=== PATIENT | male | born 1995 | race American Indian/Alaskan Native ===

== ENCOUNTER 2016-09-10 16:21 | Emergency (ER) | payer SELFPAY ==
[2016-09-10 16:44] VITALS: BP 136/97
--- NOTE | 2016-09-10 18:48 | Emergency Department Report ---
Minor Respiratory - HPI Chief Complaint: Upper Respiratory Infection Stated Complaint: FLU SYMPTOMS Time Seen by Provider: 09/10/16 18:30 Duration: 2 weeks Pain Location: Nose Severity: mild Minor Respiratory: Yes Rhinorrhea, Yes Able to Tolerate Fluids, Yes Cough, No Sore Throat, No Ear Pain, No Sick Contacts, No Hemoptysis, No Chest Pain, No Shortness of Breath, No Fever Other History: Pt reports congestion and R maxillary pain x 2 weeks. No fever. Also reports STD exposure. ED Review of Systems ROS: Stated complaint: FLU SYMPTOMS Other details as noted in HPI Comment: All other systems reviewed and negative Constitutional: denies: chills, fever Eyes: denies: eye pain, eye discharge, vision change ENT: congestion. denies: ear pain, throat pain Respiratory: cough. denies: shortness of breath, wheezing Cardiovascular: denies: chest pain, palpitations Endocrine: no symptoms reported Gastrointestinal: denies: abdominal pain, nausea, diarrhea Genitourinary: denies: urgency, dysuria Musculoskeletal: denies: back pain, joint swelling, arthralgia Skin: denies: rash, lesions Neurological: denies: headache, weakness, paresthesias Psychiatric: denies: anxiety, depression Hematological/Lymphatic: denies: easy bleeding, easy bruising ED Past Medical Hx - Past Medical History Previous Medical History?: No - Surgical History Past Surgical History?: No - Social History Smoking Status: Current Some Day Smoker Substance Use Type: Alcohol, Marijuana - Medications Home Medications: Home Medications Medication Instructions Recorded Confirmed Last Taken Type Amoxicillin/K Clav Tab [Augmentin 1 tab PO Q12HR #20 tab 09/10/16 Unknown Rx 875 mg] Minor Respiratory Exam - Exam General: Vital signs noted. No distress. Alert and acting appropriately. HEENT: Yes Pharyngeal Erythema, Yes Moist Mucous Membranes, Yes Rhinorrhea, Yes Maxillary Tenderness, No Pharyngeal Exudates, No Conjuctival Injection, No Frontal Tenderness Ear: Neither TM Bulge, Neither TM Erythema, Neither EAC Pain, Neither EAC Discharge Neck: Yes Supple, No Adenopathy Lungs: Yes Good Air Exchange, No Wheezes, No Ronchi, No Stridor, No Cough, No Labored Respirations, No Retractions, No Use of Accessory Muscles, No Other Abnormal Lung Sounds Heart: Yes Regular, No Murmur Abdomen: Yes Normal Bowel Sounds, No Tenderness, No Peritoneal Signs Skin: No Rash, No Edema Neurologic: Alert and oriented, no deficits. Musculoskeletal: Unremarkable. ED Course Vital Signs 09/10/16 16:41 Temperature 98.4 F Pulse Rate 94 H Respiratory 20 Rate Blood Pressure 136/97 O2 Sat by Pulse 100 Oximetry - Reevaluation(s) Reevaluation #1: 09/10/16 18:47 NAD, stable for d/c. ED Medical Decision Making - Medical Decision Making Will send urine for STD testing and treat. Will give abx for ongoing sinusitis. Follow up given. - Differential Diagnosis sinusitis, STI Critical care attestation.: If time is entered above; I have spent that time in minutes in the direct care of this critically ill patient, excluding procedure time. ED Disposition Clinical Impression: Right maxillary sinusitis, Exposure to STD Disposition: DISCHARGED TO HOME OR SELFCARE Is pt being admited?: No Condition: Good Instructions: Sinusitis (ED) Prescriptions: Amoxicillin/K Clav Tab [Augmentin 875 mg] 1 tab PO Q12HR #20 tab Time of Disposition: 18:50
[2016-09-10] MEDS: ROCEPHIN IM ONE (19:00)
[2016-09-10] MEDS: ZITHROMAX PO ONE (19:00)
[2016-09-10] MEDS: XYLOCAINE 1% MPF 5 mL INFILTRATI ONE (19:00)
== END 2016-09-10 18:50 | disposition home or self-care (01) ==
LOC: ED 16:21
DX: J32.0 Chronic maxillary sinusitis (principal); F17.200 Nicotine dependence, unspecified, uncomplicated; F12.10 Cannabis abuse, uncomplicated; Z20.2 Contact with and (suspected) exposure to infections with a predominantly sexual mode of transmission
CPT/HCPCS: 96372; 99282; J0696

== ENCOUNTER 2016-12-01 10:59 | Emergency (ER) | payer SELFPAY ==
[2016-12-01] MEDS ORDERED: BENADRYL IV ONE (17:11)
[2016-12-01] MEDS ORDERED: REGLAN IV ONE (17:11)
[2016-12-01] MEDS ORDERED: MOTRIN PO ONE (17:23)
[2016-12-01 17:43] VITALS: BP 134/74
--- NOTE | 2016-12-03 07:29 | Emergency Department Report ---
Entered by ADOLPH NUNEZ, acting as scribe for ELIA TATE NP. ED Headache HPI - General Chief Complaint: Headache Stated Complaint: MIGRAINES Time Seen by Provider: 12/01/16 16:14 Source: patient Exam Limitations: no limitations - History of Present Illness Initial Comments: 21 y/o male, with Hx of chronic migraines, non-toxic, well nourished, no acute signs of distress presents c/o a sharp JAUREGUI that started 1.5 weeks ago and has gradually worsened. Pt denies trauma to the head or n/v, abd pain, SOB, chest pain, fever, thunderclap headache, blurry vision or vision disturbances. Alleviating factors include ibuprofin and darkness. Pain is aggravated by bright lights and stress. Pt notes that his co-worker Jed will be driving him home. Patient denies having a primary care doctor. Denies any allergies. Timing/Duration: other (1.5 weeks) Quality: sharp Head Injury Location: frontal Recent Head Trauma: no recent headache/trauma, chronic headaches Modifying Factors: improves with: exposure to light (worsens with), medication ( ibuprofin mild relief) Associated Symptoms: denies symptoms. denies: fever/chills, loss of consciousness, nausea/vomiting, numbness in legs/feet, vision changes Allergies/Adverse Reactions: Allergies No Known Allergies Allergy (Verified 05/13/16 20:40) Home Medications: Ambulatory Orders Amoxicillin/K Clav Tab [Augmentin 875 mg] 1 tab PO Q12HR #20 tab 09/10/16 metroNIDAZOLE [Flagyl TAB] 500 mg PO ONCE #4 tab 09/19/16 Ibuprofen [Motrin 800 MG tab] 800 mg PO Q8HR PRN 5 Days 12/01/16 ED Review of Systems Constitutional: denies: chills, fever Eyes: denies: vision change, other (blurry vision) Respiratory: denies: shortness of breath Cardiovascular: denies: chest pain Gastrointestinal: denies: abdominal pain, nausea, vomiting, diarrhea Neurological: headache (non thunderclap). denies: numbness ED Past Medical Hx - Past Medical History Previous Medical History?: Yes Hx Headaches / Migraines: Yes - Surgical History Past Surgical History?: No - Social History Smoking Status: Current Every Day Smoker Substance Use Type: Alcohol, Marijuana - Medications Home Medications: Home Medications Medication Instructions Recorded Confirmed Last Taken Type Amoxicillin/K Clav Tab [Augmentin 1 tab PO Q12HR #20 tab 09/10/16 Unknown Rx 875 mg] metroNIDAZOLE [Flagyl TAB] 500 mg PO ONCE #4 tab 09/19/16 Unknown Rx Ibuprofen [Motrin 800 MG tab] 800 mg PO Q8HR PRN 5 Days 12/01/16 Unknown Rx ED Physical Exam - General Limitations: No Limitations General appearance: alert, in no apparent distress - Head Head exam: Present: atraumatic, normocephalic - Eye Eye exam: Present: normal appearance, PERRL, EOMI - ENT ENT exam: Present: normal exam, mucous membranes moist - Neck Neck exam: Present: normal inspection, full ROM. Absent: tenderness, meningismus, lymphadenopathy - Respiratory Respiratory exam: Present: normal lung sounds bilaterally. Absent: respiratory distress, wheezes, rales, rhonchi, stridor, chest wall tenderness, accessory muscle use, decreased breath sounds, prolonged expiratory - Cardiovascular Cardiovascular Exam: Present: regular rate, normal rhythm, normal heart sounds - GI/Abdominal GI/Abdominal exam: Present: soft, normal bowel sounds. Absent: tenderness, guarding, rebound - Extremities Exam Extremities exam: Present: normal inspection, full ROM, normal capillary refill. Absent: tenderness, pedal edema - Back Exam Back exam: Present: normal inspection, full ROM. Absent: tenderness, CVA tenderness (R), CVA tenderness (L), muscle spasm, paraspinal tenderness, vertebral tenderness, rash noted - Neurological Exam Neurological exam: Present: alert, oriented X3, CN II-XII intact, normal gait - Expanded Neurological Exam Expanded Patient oriented to: Present: person, place, time Speech: Present: fluid speech (normal speech) Cranial nerves: EOM's Intact: Normal, Gag Reflex: Normal, Tongue Deviation: Normal, Nystagmus: Normal, Facial Sensation: Normal, Facial Palsy with Forehead Movement: Normal, Facial Palsy without Forehead Movement: Normal Cerebellar function: Finger to Nose: Normal, Heel to Cruz: Normal, Romberg: Normal Upper motor neuron: Eriberto Neglect: Normal, Pronator Drift: Normal, Babinski Sign : Normal, Sensory Extinction: Normal Sensory exam: Upper Extremity Light Touch: Normal, Upper Extremity Pin Prick: Normal, Upper Extremity Temperature: Normal, UE 2 Point Discrimination: Normal, Lower Extremity Light Touch: Normal, Lower Extremity Pin Prick: Normal, Lower Extremity Temperature: Normal, LE 2 Point Discrimination: Normal Motor strength exam: RUE: 5, LUE: 5, RLE: 5, LLE: 5 Best Eye Response (Farzaneh): (4) open spontaneously Best Motor Response (Farzaneh): (6) obeys commands Best Verbal Response (Dudley): (5) oriented Farzaneh Total: 15 - Psychiatric Psychiatric exam: Present: normal affect, normal mood - Skin Skin exam: Present: warm, normal color ED Course Vital Signs 12/01/16 11:35 Temperature 98.4 F Pulse Rate 71 Respiratory 18 Rate Blood Pressure 142/87 O2 Sat by Pulse 98 Oximetry ED Medical Decision Making - Medical Decision Making Ed course: This is a 21-year-old male that presents with migraine headaches 1- after my physical exam, I ordered Benadryl 25 mg IV and Reglan 10 mg IV. Patient refused and stated would like to only receive ibuprofen due to time constraints. Patient stated had to leave for work due to missed work yesterday. Patient was instructed that I went to evaluate him further and make sure that the treatment subsides his symptoms, but patient refused and said he wants to go home. 2- Jed will be driving him home and is currently present. 3- patient received ibuprofen 800 mg by mouth an ED. I was unable to reevaluate pain due to patient wanted to leave. 4- at the time of discharge the patient does not seem toxic or ill in appearance. No signs of distress noted. Patient agrees to discharge treatment plan. No further questions noted by the patient. 5- patient was instructed to follow up with a primary care doctor for migraine headaches or if symptoms worsen report beds emergency room. ED Disposition Clinical Impression: Migraine headache Qualifiers: Migraine type: unspecified Status migrainosus presence: without status migrainosus Intractability: not intractable Qualified Code(s): G43.909 - Migraine, unspecified, not intractable, without status migrainosus Disposition: DISCHARGED TO HOME OR SELFCARE Is pt being admited?: No Does the pt Need Aspirin: No Condition: Stable Instructions: Migraine Headache (ED), Ibuprofen (By mouth) Additional Instructions: Follow-up with a primary care doctor for her migraine headaches or if symptoms worsen such as thunderclap headache, nausea vomiting, or vision, sudden onset of headache report back to emergency room. Take ibuprofen as prescribed as needed. Prescriptions: Ibuprofen [Motrin 800 MG tab] 800 mg PO Q8HR PRN 5 Days PRN Reason: Pain Referrals: ROSA ELENA HAQEU MD [Referring] - 3-5 Days [facility] [Outside] - 3-5 Days [facility] [Outside] - 3-5 Days PRIMARY CARE, [Primary Care Provider] - [facility] Forms: Work/School Release Form(ED) This documentation as recorded by the ENRIQUE coffey RYAN,accurately reflects the service I personally performed and the decisions made by ,ELIA TATE, REJI.
== END 2016-12-01 17:40 | disposition home or self-care (01) ==
LOC: ED 10:59
DX: G43.909 Migraine, unspecified, not intractable, without status migrainosus (principal); F17.200 Nicotine dependence, unspecified, uncomplicated; F12.10 Cannabis abuse, uncomplicated
CPT/HCPCS: 99282; J1200; J2765

== ENCOUNTER 2021-01-14 03:12 | Emergency (ER) | payer BC ==
--- NOTE | 2021-01-14 04:35 | Emergency Department Report ---
ED General Adult HPI - General Chief complaint: Dental/Oral Stated complaint: MOUTH PAIN Source: patient Mode of arrival: Ambulatory Limitations: No Limitations - History of Present Illness Initial comments: Patient is a 25-year-old -[place] male with a history of morbid obesity and migraine headaches who presents to the ED with complaint of acute onset persistent painful swollen maxillary and mandibular gingiva with premolar and molar toothaches for the last 2 weeks, worse in the last 3 days. Patient states that he has been taking [id number] medications with no relief. Patient denies dizziness, syncope, chest pain, shortness of breath, sore throat, headache, fever, chills, cough, neck pain, change in vision, dizziness or syncope. MD Complaint: Right maxillary and mandibular premolar and molar toothache with swollen gi -: Sudden, week(s) (2) Location: mouth Radiation: non-radiation Severity scale (0 -10): 7 Quality: aching, sharp Consistency: constant Improves with: none Worsens with: eating Associated Symptoms: denies other symptoms. denies: confusion, chest pain, cough, fever/chills, headaches, loss of appetite, malaise, nausea/vomiting, rash, seizure, shortness of breath, syncope, weakness Treatments Prior to Arrival: none - Related Data Previous Rx's Medication Instructions Recorded Last Taken Type Amoxicillin/K Clav Tab [Augmentin 1 tab PO Q12HR #20 tab 09/10/16 Unknown Rx 875 mg] metroNIDAZOLE [Flagyl TAB] 500 mg PO ONCE #4 tab 09/19/16 Unknown Rx Ibuprofen [Motrin 800 MG tab] 800 mg PO Q8HR PRN 5 Days tablet 12/01/16 Unknown Rx Clindamycin [Clindamycin CAP] 300 mg PO Q8HR #60 capsule 01/14/21 Unknown Rx Ibuprofen [Motrin] 800 mg PO Q8HR PRN #30 tablet 01/14/21 Unknown Rx traMADoL [Ultram] 50 mg PO Q6HR PRN #12 tablet 01/14/21 Unknown Rx Allergies Allergy/AdvReac Type Severity Reaction Status Date / Time No Known Allergies Allergy Verified 05/13/16 20:40 ED Review of Systems ROS: Stated complaint: MOUTH PAIN Other details as noted in HPI Constitutional: denies: chills, fever Eyes: denies: eye pain, eye discharge, vision change ENT: dental pain (Right maxillary and mandibular premolar and molar toothache), other (Right maxillary and mandibular gingival pain and swelling). denies: ear pain, throat pain Respiratory: denies: cough, shortness of breath, wheezing Cardiovascular: denies: chest pain, palpitations Endocrine: no symptoms reported Gastrointestinal: denies: abdominal pain, nausea, vomiting, diarrhea Genitourinary: denies: urgency, dysuria Musculoskeletal: denies: back pain, joint swelling, arthralgia Skin: denies: rash, lesions Neurological: denies: headache, weakness, paresthesias Psychiatric: denies: anxiety, depression Hematological/Lymphatic: denies: easy bleeding, easy bruising ED Past Medical Hx - Past Medical History Previous Medical History?: No Hx Headaches / Migraines: Yes - Surgical History Past Surgical History?: No - Social History Smoking Status: Current Some Day Smoker Substance Use Type: None - Medications Home Medications: Home Medications Medication Instructions Recorded Confirmed Last Taken Type Amoxicillin/K Clav Tab [Augmentin 1 tab PO Q12HR #20 tab 09/10/16 Unknown Rx 875 mg] metroNIDAZOLE [Flagyl TAB] 500 mg PO ONCE #4 tab 09/19/16 Unknown Rx Ibuprofen [Motrin 800 MG tab] 800 mg PO Q8HR PRN 5 Days tablet 12/01/16 Unknown Rx Clindamycin [Clindamycin CAP] 300 mg PO Q8HR #60 capsule 01/14/21 Unknown Rx Ibuprofen [Motrin] 800 mg PO Q8HR PRN #30 tablet 01/14/21 Unknown Rx traMADoL [Ultram] 50 mg PO Q6HR PRN #12 tablet 01/14/21 Unknown Rx ED Physical Exam - General Limitations: No Limitations General appearance: alert, in no apparent distress - Head Head exam: Present: atraumatic, normocephalic, normal inspection - Eye Eye exam: Present: normal appearance, PERRL, EOMI Pupils: Present: normal accommodation - ENT ENT exam: Present: mucous membranes moist, normal external ear exam, other (Swollen, severely tender right maxillary and mandibular gingiva with severe premolar and molar tenderness) - Neck Neck exam: Present: normal inspection, full ROM. Absent: tenderness - Respiratory Respiratory exam: Present: normal lung sounds bilaterally. Absent: respiratory distress, wheezes, rales, rhonchi, chest wall tenderness, prolonged expiratory - Cardiovascular Cardiovascular Exam: Present: regular rate, normal rhythm, normal heart sounds. Absent: systolic murmur, diastolic murmur, rubs, gallop - GI/Abdominal GI/Abdominal exam: Present: soft, normal bowel sounds. Absent: distended, tenderness, guarding, rebound, hyperactive bowel sounds, hypoactive bowel sounds - Extremities Exam Extremities exam: Present: normal inspection, full ROM, normal capillary refill - Back Exam Back exam: Present: normal inspection, full ROM. Absent: tenderness, CVA tenderness (L), paraspinal tenderness, vertebral tenderness - Neurological Exam Neurological exam: Present: alert, oriented X3, CN II-XII intact, normal gait, reflexes normal - Psychiatric Psychiatric exam: Present: normal affect, normal mood - Skin Skin exam: Present: warm, dry, intact, normal color. Absent: rash ED Course Vital Signs 01/14/21 04:03 Temperature 98.4 F Pulse Rate 74 Respiratory 16 Rate Blood Pressure 146/92 [Right] O2 Sat by Pulse 100 Oximetry ED Medical Decision Making - Medical Decision Making This is a 25-year-old -[place] male with a history of morbid obesity and migraine headaches who presents to the ED with complaint of acute onset per sistent painful swollen maxillary and mandibular gingiva with premolar and molar toothaches for the last 2 weeks, worse in the last 3 days. Patient states that he has been taking [id number] medications with no relief. In the ED, patient is alert and oriented x3 and is not in any distress. Based on the history and physical exam findings, the patient will discharge home on pain medications and prophylactic antibiotics and was advised to follow-up with her primary care physician or dentist in 7 to 10 days for reevaluation. Patient is advised return to the ED immediately if symptoms get worse. - Differential Diagnosis Dental abscess; gingivitis; dental caries Critical care attestation.: If time is entered above; I have spent that time in minutes in the direct care of this critically ill patient, excluding procedure time. ED Disposition Clinical Impression: Dental caries, Acute gingivitis, Dental abscess Disposition: TO HOME OR SELFCARE Is pt being admited?: No Does the pt Need Aspirin: No Condition: Stable Instructions: Dental Abscess, [id number], Trench Mouth Additional Instructions: Take medication with food, drink plenty of fluids and follow-up with your primary care physician or dentist in 7 to 10 days for reevaluation. Return to the ED immediately if symptoms get worse. Prescriptions: Clindamycin [Clindamycin CAP] 300 mg PO Q8HR #60 capsule Ibuprofen [Motrin] 800 mg PO Q8HR PRN #30 tablet PRN Reason: Severe pain traMADoL [Ultram] 50 mg PO Q6HR PRN #12 tablet PRN Reason: Pain Referrals: [facility] [Outside] - 7-10 days Forms: Work/School Release Form(ED) Time of Disposition: 04:35 Print Language: LIBYAN
== END 2021-01-14 06:04 | disposition home or self-care (01) ==
LOC: ED 03:12
CPT/HCPCS: 99281